=== PATIENT | female | born 1935 | race Caucasian/White ===

== ENCOUNTER → 2021-06-14 | Outpatient (CLI) | payer MEDICARE, BC | END | disposition home or self-care (01) | LOC: LAB SHORT 14:54 | DX: C44.612 Basal cell carcinoma of skin of right upper limb, including shoulder (principal); D03.39 Melanoma in situ of other parts of face; C44.41 Basal cell carcinoma of skin of scalp and neck; D04.71 Carcinoma in situ of skin of right lower limb, including hip | CPT/HCPCS: 88305 ==

== ENCOUNTER → 2021-08-11 | Outpatient (CLI) | payer MEDICARE, BC | END | disposition home or self-care (01) | LOC: LAB SHORT 12:43 | DX: N39.0 Urinary tract infection, site not specified (principal) | CPT/HCPCS: 87086 ==

== ENCOUNTER → 2021-09-09 | Outpatient (CLI) | payer MEDICARE, BC | END | disposition home or self-care (01) | LOC: LAB SHORT 12:05 | DX: N39.0 Urinary tract infection, site not specified (principal) | CPT/HCPCS: 87086 ==

== ENCOUNTER 2021-12-10 04:22 | Emergency (ER) | payer MEDICARE, BC ==
[~2021-12-10] VITALS: Ht 160 cm; Wt 49.9 kg
[2021-12-10] MEDS ORDERED: FLUO10 PO (04:43)
[2021-12-10] MEDS ORDERED: DONEPEZIL HCL10 M1 PO (04:44)
[2021-12-10 04:57] LABS: BASOPHILS ABSOLUTE AUTO 0.03 K/mm3 (0.00-0.23); BASOPHILS PERCENT AUTO 0 % (0-2); EOSINOPHILS ABSOLUTE AUTO 0.07 K/mm3 (0.00-0.68); EOSINOPHILS PERCENT AUTO 1 % (0-6); Hematocrit 40.2 % (33.0-51.0); Hemoglobin 13.8 g/dL (11.5-16.0); IMMATURE GRAN ABSOLUTE AUTO 0.03 K/mm3 (0.00-0.10); IMMATURE GRAN PERCENT AUTO 0 % (0-1); LYMPHOCYTES PERCENT AUTO 24 % (21-46); MONOCYTES ABSOLUTE AUTO 0.61 K/mm3 (0.16-1.47); MONOCYTES PERCENT AUTO 8 % (4-13); Mean Corpuscular HGB 30.4 pg (26.0-34.0); Mean Corpuscular HGB Conc 34.3 g/dL (31.5-36.5); Mean Corpuscular Volume 89 fL (80-100); Mean Platelet Volume 8.7 fL (9.1-12.4); NEUTROPHILS ABSOLUTE AUTO 5.39 K/mm3 (1.96-9.15); NEUTROPHILS PERCENT AUTO 67 % (41-73); Platelet Count 209 K/mm3 (150-400); RDW Coefficient Variation 12.6 % (11.7-14.2); RDW Standard Deviation 41.1 fL (35.1-46.3); Red Blood Cell Count 4.54 M/mm3 (3.80-5.20); White Blood Cell Count 8.03 K/mm3 (4.00-11.30)
[2021-12-10 05:10] LABS: Alanine Aminotransfer (ALT/SGP 47 U/L (12-78); Albumin, Blood 3.7 g/dL (3.4-5.0); Albumin/Globulin Ratio 0.9 (0.8-1.8); Alk Phos 89 U/L (50-136); Anion Gap 9 mmol/L (6-16); Aspartate Aminotrans (AST/SGOT 32 U/L (12-37); Bilirubin, Total 0.5 mg/dL (0.1-1.0); Blood Urea Nitrogen 20 mg/dL (8-24); Bun/Creatinine Ratio 31.2 (12.0-20.0); CO2, Blood 27 mmol/L (21-32); Calcium, Blood 9.4 mg/dL (8.5-10.1); Chloride, Blood 99 mmol/L (98-108); Creatinine, Blood 0.64 mg/dL (0.40-1.00); Glomerular Filtration Rate 87 (60-); Glucose, Blood 137 mg/dL (70-99); Potassium, Blood 3.4 mmol/L (3.5-5.5); Sodium, Blood 135 mmol/L (136-145); Total Protein, Blood 7.7 g/dL (6.4-8.2)
== END 2021-12-10 07:31 | disposition home or self-care (01) ==
LOC: ER 04:22
PROVIDERS: Emergency Medicine
DX: R51.9 Headache, unspecified (principal); I10 Essential (primary) hypertension; Z79.82 Long term (current) use of aspirin; Z79.899 Other long term (current) drug therapy
CPT/HCPCS: 36415; 70450; 70496; 70498; 80053; 84484; 85025; 93005; 93010; A9270; Q9967

== ENCOUNTER 2022-07-11 13:51 | Emergency (ER) | payer MEDICARE, BC ==
[~2022-07-11] VITALS: Ht 160 cm; Wt 52.2 kg
[~2022-07-11 13:51] MED LIST: DONEPEZIL HCL10 M1 PO; FLUO10 PO
== END 2022-07-11 19:04 | disposition home or self-care (01) ==
LOC: ER 13:51
DX: S09.90XA Unspecified injury of head, initial encounter (principal); W19.XXXA Unspecified fall, initial encounter; Z79.899 Other long term (current) drug therapy
CPT/HCPCS: 70450

== ENCOUNTER → 2023-08-21 | Outpatient (CLI) | payer MEDICARE, BC | LOC: LAB SHORT 14:34 → LAB 14:34 | DX: R30.0 Dysuria (principal); R11.0 Nausea | CPT/HCPCS: 87086 ==

== ENCOUNTER → 2024-05-06 | Outpatient (CLI) | payer MEDICARE, BC ==
[~2024-05-06] MED LIST changes: +CARV6.25 PO; +LOSARTAN POTASS50 M1 PO; +POTA10T PO; +SPIR25 PO; +TORS10 PO
[2024-05-06 18:37] LABS: BASOPHILS ABSOLUTE AUTO 0.02 K/mm3 (0.00-0.23); BASOPHILS PERCENT AUTO 0 % (0-2); EOSINOPHILS ABSOLUTE AUTO 0.14 K/mm3 (0.00-0.68); EOSINOPHILS PERCENT AUTO 2 % (0-6); Hematocrit 32.9 % (33.0-51.0); Hemoglobin 11.2 g/dL (11.5-16.0); IMMATURE GRAN ABSOLUTE AUTO 0.02 K/mm3 (0.00-0.10); IMMATURE GRAN PERCENT AUTO 0 % (0-1); LYMPHOCYTES ABSOLUTE AUTO 1.79 K/mm3 (0.84-5.20); LYMPHOCYTES PERCENT AUTO 29 % (21-46); MONOCYTES ABSOLUTE AUTO 0.41 K/mm3 (0.16-1.47); MONOCYTES PERCENT AUTO 7 % (4-13); Mean Corpuscular Volume 91 fL (80-100); Mean Platelet Volume 9.1 fL (9.1-12.4); NEUTROPHILS ABSOLUTE AUTO 3.81 K/mm3 (1.96-9.15); NEUTROPHILS PERCENT AUTO 62 % (41-73); Platelet Count 232 K/mm3 (150-400); RDW Coefficient Variation 14.5 % (11.7-14.2); RDW Standard Deviation 47.3 fL (35.1-46.3); Red Blood Cell Count 3.61 M/mm3 (3.80-5.20); White Blood Cell Count 6.19 K/mm3 (4.00-11.30)
[2024-05-06 18:57] LABS: Albumin, Blood 3.3 g/dL (3.4-5.0); Albumin/Globulin Ratio 0.9 (0.8-1.8); Bilirubin, Total 0.6 mg/dL (0.1-1.0); Bun/Creatinine Ratio 28.2 (12.0-20.0); Calcium, Blood 9.1 mg/dL (8.5-10.1); Creatinine, Blood 1.1 mg/dL (0.40-1.00); Globulin, Blood 3.6 g/dL (2.2-4.0); Potassium, Blood 3.8 mmol/L (3.5-5.5); Thyroid Stimulating Hormone 2.32 uIU/mL (0.360-4.800); Total Protein, Blood 6.9 g/dL (6.4-8.2)
== END | disposition home or self-care (01) ==
LOC: LAB 18:34 → LAB SHORT 18:34
PROVIDERS: Physician Assistant
DX: R53.83 Other fatigue (principal); R60.0 Localized edema
CPT/HCPCS: 80053; 83880; 84443; 85025

== ENCOUNTER 2024-05-07 10:56 | Inpatient (IN) | payer MEDICARE, BC ==
[~2024-05-07] VITALS: Ht 160 cm; Wt 52.7 kg
[~2024-05-07 10:56] MED LIST changes: -CARV6.25 PO; -LOSARTAN POTASS50 M1 PO; -POTA10T PO; -SPIR25 PO; -TORS10 PO
[2024-05-07 12:25] LABS: BASOPHILS ABSOLUTE AUTO 0.03 K/mm3 (0.00-0.23); BASOPHILS PERCENT AUTO 1 % (0-2); EOSINOPHILS ABSOLUTE AUTO 0.07 K/mm3 (0.00-0.68); EOSINOPHILS PERCENT AUTO 1 % (0-6); Hematocrit 32.2 % (33.0-51.0); Hemoglobin 10.6 g/dL (11.5-16.0); IMMATURE GRAN ABSOLUTE AUTO 0.01 K/mm3 (0.00-0.10); IMMATURE GRAN PERCENT AUTO 0 % (0-1); LYMPHOCYTES ABSOLUTE AUTO 1.27 K/mm3 (0.84-5.20); LYMPHOCYTES PERCENT AUTO 25 % (21-46); MONOCYTES ABSOLUTE AUTO 0.41 K/mm3 (0.16-1.47); MONOCYTES PERCENT AUTO 8 % (4-13); Mean Corpuscular HGB Conc 32.9 g/dL (31.5-36.5); Mean Corpuscular Volume 91 fL (80-100); Mean Platelet Volume 9.3 fL (9.1-12.4); NEUTROPHILS ABSOLUTE AUTO 3.39 K/mm3 (1.96-9.15); NEUTROPHILS PERCENT AUTO 65 % (41-73); Platelet Count 219 K/mm3 (150-400); RDW Coefficient Variation 14.3 % (11.7-14.2); RDW Standard Deviation 47.2 fL (35.1-46.3); Red Blood Cell Count 3.53 M/mm3 (3.80-5.20); White Blood Cell Count 5.18 K/mm3 (4.00-11.30)
[2024-05-07 12:48] LABS: Albumin, Blood 3.2 g/dL (3.4-5.0); Albumin/Globulin Ratio 0.9 (0.8-1.8); Bilirubin, Total 0.7 mg/dL (0.1-1.0); Calcium, Blood 8.8 mg/dL (8.5-10.1); Creatinine, Blood 1.15 mg/dL (0.40-1.00); Globulin, Blood 3.5 g/dL (2.2-4.0); Potassium, Blood 3.4 mmol/L (3.5-5.5); Total Protein, Blood 6.7 g/dL (6.4-8.2)
[2024-05-07] MEDS ORDERED: Furosemide 10 MG/ML 4ML Vial IV ONE (15:00)
[2024-05-07 16:50] LABS: Source, Urine Clean Catch
[2024-05-07] MEDS ORDERED: FLU VACC TS2024-25(6MOS UP)/PF 45 MCG/0.5 ML SYRINGE IM ONE (17:05)
[2024-05-07 17:06] LABS: Appearance, Urine Clear (Clear); Bilirubin, Urine Neg (Neg); Blood, Urine 2+ (Neg); Glucose Qualitative, Urine Neg (Neg); Ketones, Urine Neg (Neg); Leukocyte Esterase, Urine Neg (Neg); Nitrite, Urine Neg (Neg); Protein, Urine Neg (Neg); Specific Gravity, Urine 1.005 (1.003-1.022); Urobilinogen, Urine NORM (Normal)
[2024-05-07 17:27] LABS: Color, Urine Pale Yellow (P-Yellow)
[2024-05-07 17:28] LABS: Bacteria Rare /hpf; Squamous Epithelial Cells Not Seen /hpf (Few); White Blood Cells, Urine 0-2 /hpf (0-5)
[2024-05-07] MEDS ORDERED: Losartan Potassium 25 MG Tab PO SCH (18:00)
--- NOTE | 2024-05-07 18:27 | NUR ---
PATIENT ASSIGNED TO THIS RN'S ASSIGNED ROOM 348. CHART REVIEW FOR ONCOMING SHIFT TO ADMIT PATIENT.
[2024-05-07 20:54] VITALS: BP 156/89
--- NOTE | 2024-05-07 23:09 | NUR ---
ADMIT NOTE PT ADMITTED FOR CHF. SHE HAS HAD LEG SWELLING AND INCREASED WEAKNESS AT HER ASSISTED LIVING FACILITY. SHE MAINTAINS HER SATS ON RA. 2 ASSIST FROM STRETCHER TO BED. PT IS 0X2, FORGETFUL. DAUGHTER, RAYMON, PRESENT DURING ADMISSION ASSESSMENT, ASSISTING WITH QUESTIONS. BED ALARM ON, CALL LIGHT WITHIN REACH, SIDE RAILS UP X2.
[2024-05-08 03:53] VITALS: BP 176/105
[2024-05-08 06:01] LABS: BASOPHILS ABSOLUTE AUTO 0.02 K/mm3 (0.00-0.23); BASOPHILS PERCENT AUTO 0 % (0-2); EOSINOPHILS ABSOLUTE AUTO 0.13 K/mm3 (0.00-0.68); EOSINOPHILS PERCENT AUTO 2 % (0-6); Hematocrit 34.3 % (33.0-51.0); Hemoglobin 11.3 g/dL (11.5-16.0); IMMATURE GRAN ABSOLUTE AUTO 0.05 K/mm3 (0.00-0.10); IMMATURE GRAN PERCENT AUTO 1 % (0-1); LYMPHOCYTES ABSOLUTE AUTO 1.68 K/mm3 (0.84-5.20); LYMPHOCYTES PERCENT AUTO 26 % (21-46); MONOCYTES ABSOLUTE AUTO 0.48 K/mm3 (0.16-1.47); MONOCYTES PERCENT AUTO 8 % (4-13); Mean Corpuscular HGB 30.2 pg (26.0-34.0); Mean Corpuscular HGB Conc 32.9 g/dL (31.5-36.5); Mean Corpuscular Volume 92 fL (80-100); Mean Platelet Volume 9.3 fL (9.1-12.4); NEUTROPHILS ABSOLUTE AUTO 4.07 K/mm3 (1.96-9.15); NEUTROPHILS PERCENT AUTO 63 % (41-73); Platelet Count 238 K/mm3 (150-400); RDW Coefficient Variation 14.5 % (11.7-14.2); RDW Standard Deviation 47.7 fL (35.1-46.3); Red Blood Cell Count 3.74 M/mm3 (3.80-5.20); White Blood Cell Count 6.43 K/mm3 (4.00-11.30)
--- NOTE | 2024-05-08 06:14 | NUR ---
SHIFT SUMMARY PT ADMITTED THIS SHIFT FOR CHF. LOSARTAN STARTED FOR HTN, BUT BP REMAINS ELEVATED THIS AM. EDEMA TO BLE'S RIGHT MORE EDEMATOUS THAN LEFT. PT OOB TO BSC WITH MAX ASSIST. PT IS VERY WEAK. PT WITH CONFUSION AND FORGETFULNESS. BED ALARM ON, SIDERAILS UP X2, CALL LIGHT WITHIN REACH.
[2024-05-08 06:31] LABS: Albumin, Blood 3.4 g/dL (3.4-5.0); Bun/Creatinine Ratio 27.9 (12.0-20.0); Calcium, Blood 8.9 mg/dL (8.5-10.1); Creatinine, Blood 0.97 mg/dL (0.40-1.00); Globulin, Blood 3.5 g/dL (2.2-4.0); Potassium, Blood 3.3 mmol/L (3.5-5.5); Total Protein, Blood 6.9 g/dL (6.4-8.2)
[2024-05-08 07:29] VITALS: BP 168/108
[2024-05-08] MEDS ORDERED: Ondansetron HCl 2 MG / ML 2ML Vial IV PRN (08:40)
[2024-05-08] MEDS ORDERED: Donepezil HCl 5 MG Tab PO SCH (09:00)
[2024-05-08] MEDS ORDERED: Furosemide 10 MG / ML 2ML Vial IV SCH (09:00)
[2024-05-08] MEDS ORDERED: Enoxaparin 30 MG/0.3 ML SYR SC SCH (09:00)
[2024-05-08] MEDS ORDERED: FLUoxetine HCl 10 MG Cap PO SCH (09:00)
[2024-05-08] MEDS ORDERED: Losartan Potassium 25 MG Tab PO ONE (11:00)
--- NOTE | 2024-05-08 16:45 | NUR ---
ATTEMPTED TO CALL PHYSICIAN FOR POTASSIUM OF 3.3 THIS AM AND WAS UNABLE TO REACH. MESSAGE LEFT, NO ORDERS RECEIVED.
--- NOTE | 2024-05-08 17:17 | NUR ---
SHIFT SUMMARY PT IS A/OX2, CONFUSION AT TIMES. PT SLEPT THROUGHOUT MUCH OF THE SHIFT. PT REMAINS ON RA SATS >92%. ON TELE RUNNING SINUS RHYTHM IN THE 90'S. PT ABLE TO TRANSFER TO BSC WITH A 2 PERSON ASSIST. TAKES PILLS WHOLE WITH WATER. NO ACUTE EVENTS THROUGHOUT THE SHIFT. BED ALARM IS ON WITH THE CALL LIGHT IN REACH. DAUGHTER AT BEDSIDE.
--- NOTE | 2024-05-08 19:00 | NUR ---
ATTEMPTED TO CONTACT AUDIT ANALYST DOCTORS FOR A POTASSIUM OF 3.3 THIS AM AND WAS UNABLE TO REACH.
[2024-05-08 19:20] VITALS: BP 135/83
[2024-05-08] MEDS ORDERED: Potassium Chloride 20 MEQ TabCR PO ONE (22:40)
[2024-05-09 02:26] VITALS: BP 140/83
--- NOTE | 2024-05-09 04:10 | NUR ---
PT RESTED IN BED QUIETLY THROUGH THE NIGHT. NO DISTRESS NOTED. EASILY AWAKENED. NO C/O VOICED.
[2024-05-09 06:15] LABS: BASOPHILS ABSOLUTE AUTO 0.02 K/mm3 (0.00-0.23); BASOPHILS PERCENT AUTO 0 % (0-2); EOSINOPHILS ABSOLUTE AUTO 0.18 K/mm3 (0.00-0.68); EOSINOPHILS PERCENT AUTO 3 % (0-6); Hematocrit 32.1 % (33.0-51.0); Hemoglobin 10.6 g/dL (11.5-16.0); IMMATURE GRAN ABSOLUTE AUTO 0.03 K/mm3 (0.00-0.10); IMMATURE GRAN PERCENT AUTO 1 % (0-1); LYMPHOCYTES ABSOLUTE AUTO 1.45 K/mm3 (0.84-5.20); LYMPHOCYTES PERCENT AUTO 24 % (21-46); MONOCYTES ABSOLUTE AUTO 0.48 K/mm3 (0.16-1.47); MONOCYTES PERCENT AUTO 8 % (4-13); Mean Corpuscular HGB 30.5 pg (26.0-34.0); Mean Corpuscular Volume 92 fL (80-100); Mean Platelet Volume 9.1 fL (9.1-12.4); NEUTROPHILS ABSOLUTE AUTO 3.87 K/mm3 (1.96-9.15); NEUTROPHILS PERCENT AUTO 64 % (41-73); Platelet Count 189 K/mm3 (150-400); RDW Coefficient Variation 14.4 % (11.7-14.2); RDW Standard Deviation 47.8 fL (35.1-46.3); Red Blood Cell Count 3.48 M/mm3 (3.80-5.20); White Blood Cell Count 6.03 K/mm3 (4.00-11.30)
[2024-05-09 06:41] LABS: Bun/Creatinine Ratio 25.9 (12.0-20.0); Calcium, Blood 8.6 mg/dL (8.5-10.1); Creatinine, Blood 1.12 mg/dL (0.40-1.00); Potassium, Blood 3.6 mmol/L (3.5-5.5)
[2024-05-09] MEDS ORDERED: Losartan Potassium 25 MG Tab PO SCH (09:00)
[2024-05-09] MEDS ORDERED: Enoxaparin 40 MG/0.4 ML SYR SC SCH (09:00)
[2024-05-09] MEDS ORDERED: Spironolactone 12.5 MG TAB PO SCH (11:00)
[2024-05-09] MEDS ORDERED: Empagliflozin 10 MG TAB PO SCH (11:00)
[2024-05-09] MEDS ORDERED: Carvedilol 3.125 MG Tab PO SCH (11:00)
[2024-05-09 12:06] VITALS: BP 106/80
[2024-05-09 15:04] VITALS: BP 113/75
--- NOTE | 2024-05-09 16:46 | NUR ---
SHIFT SUMMARY PT IS A/OX2-3, CONFUSED AND FORGETFUL AT TIMES. PT REMAINS ON RA, TELE RUNNING NORMAL SINUS RHYTHM. PT VISITED BY PT/OT TODAY, UP TO THE BSC WITH 1 PERSON ASSIST. PT EXPEREINCED ONE EPISODE OF NAUSEA AROUND LUNCHTIME, MEDICATED WITH PRN ZOFRAN AND THE NAUSEA RESOLVED. FIRST PART OF THE STRESS TEST COMPLETED THIS AFTERNOON. SECOND PART TO BE DONE TOMORROW AFTERNOON, PT TO BE NPO AFTER BREAKFAST TOMORROW, NO CAFFIENE/DECAF OR CHOCOLATE AFTER MIDNIGHT TONIGHT. DAUGHTER AT BEDSIDE THIS AM. PT UP TO THE CHAIR THIS AFTERNOON. PT IS CURRENTLY RESTING IN BED.
[2024-05-09 17:17] VITALS: BP 134/95
[2024-05-09 19:28] VITALS: BP 103/63
--- NOTE | 2024-05-10 03:48 | NUR ---
PT RESTING QUIETLY THROUGH THE NIGHT. RESP EVEN AND UNLABORED. NO DISTRESS NOTED.
[2024-05-10 06:21] LABS: BASOPHILS ABSOLUTE AUTO 0.03 K/mm3 (0.00-0.23); BASOPHILS PERCENT AUTO 1 % (0-2); EOSINOPHILS ABSOLUTE AUTO 0.25 K/mm3 (0.00-0.68); EOSINOPHILS PERCENT AUTO 5 % (0-6); Hematocrit 33.8 % (33.0-51.0); IMMATURE GRAN ABSOLUTE AUTO 0.02 K/mm3 (0.00-0.10); IMMATURE GRAN PERCENT AUTO 0 % (0-1); LYMPHOCYTES ABSOLUTE AUTO 1.62 K/mm3 (0.84-5.20); LYMPHOCYTES PERCENT AUTO 33 % (21-46); MONOCYTES ABSOLUTE AUTO 0.41 K/mm3 (0.16-1.47); MONOCYTES PERCENT AUTO 8 % (4-13); Mean Corpuscular HGB 30.6 pg (26.0-34.0); Mean Corpuscular HGB Conc 32.5 g/dL (31.5-36.5); Mean Corpuscular Volume 94 fL (80-100); Mean Platelet Volume 9.4 fL (9.1-12.4); NEUTROPHILS ABSOLUTE AUTO 2.57 K/mm3 (1.96-9.15); NEUTROPHILS PERCENT AUTO 52 % (41-73); Platelet Count 199 K/mm3 (150-400); RDW Coefficient Variation 14.4 % (11.7-14.2); RDW Standard Deviation 49.1 fL (35.1-46.3)
[2024-05-10 07:00] LABS: Magnesium, Blood 1.8 mg/dL (1.6-2.4)
[2024-05-10 07:01] LABS: Albumin, Blood 2.9 g/dL (3.4-5.0); Albumin/Globulin Ratio 0.9 (0.8-1.8); Bilirubin, Total 0.4 mg/dL (0.1-1.0); Bun/Creatinine Ratio 26.5 (12.0-20.0); Calcium, Blood 8.5 mg/dL (8.5-10.1); Creatinine, Blood 1.13 mg/dL (0.40-1.00); Globulin, Blood 3.2 g/dL (2.2-4.0); Phosphorus, Blood 3.4 mg/dL (2.5-4.9); Potassium, Blood 3.5 mmol/L (3.5-5.5); Total Protein, Blood 6.1 g/dL (6.4-8.2)
[2024-05-10 07:16] VITALS: BP 119/81
[2024-05-10] MEDS ORDERED: Regadenoson 0.4 MG/5 ML SYRINGE ONE (13:34)
[2024-05-10] MEDS ORDERED: Aminophylline 250MG / 10ML 10 ML Vial ONE (13:34)
--- NOTE | 2024-05-10 14:13 | NUR ---
report received verified, a/o x2 pleasent and cooperative npo after breakfest for jun. daughter at bedside concerned with pt condition and discharge plan. 1400 nuc med tech into perform procedure.
[2024-05-10 16:28] VITALS: BP 135/88
--- NOTE | 2024-05-10 18:16 | NUR ---
STRESS TEST AT BEDSIDE DONE AND PT BARRY WELL. 1400 PT TAKE FOR FINAL IMAGING. PT REQUESTED TO BED IN CHAIR. SNACKS GIVEN. DAUGHTER AT BEDSIDE AND PT BACK IN BED.
[2024-05-10 19:54] VITALS: BP 113/71
[2024-05-11 02:28] VITALS: BP 148/84
[2024-05-11 07:15] VITALS: BP 144/79
[2024-05-11 07:53] LABS: Bun/Creatinine Ratio 31.7 (12.0-20.0); Calcium, Blood 8.8 mg/dL (8.5-10.1); Creatinine, Blood 1.04 mg/dL (0.40-1.00); Potassium, Blood 3.6 mmol/L (3.5-5.5)
[2024-05-11] MEDS ORDERED: Furosemide 10 MG/ML 4ML Vial IV ONE (10:35)
[2024-05-11 15:17] VITALS: BP 128/82
[2024-05-11] MEDS ORDERED: Carvedilol 6.25 MG Tab PO SCH (17:00)
--- NOTE | 2024-05-11 18:38 | NUR ---
REPORT RECEIVED VERIFIED A/O WITH COME CONFUSION PT CALM AND COOPERATIVE. PT HOPING TO GO HOME TODAY DAUGHTER AT BEDSIDE WAITING TO SPEAK WITH MD. NO CHANGE PT UP IN CHAIR
--- NOTE | 2024-05-11 18:40 | NUR ---
NO CHANGE BED ALARM IN PLACE CALL LIGHT WITHIN REACH.
--- NOTE | 2024-05-11 18:40 | NUR ---
CLIENT SERVER PROGRAMMER SPOKE WITH MD AND WILL REASSESS TOMORROW, FAMILY FEELS THEY ARE MORE AWARE NOW OF PT CONDITION.
[2024-05-11 19:28] VITALS: BP 104/72
[2024-05-12 03:01] VITALS: BP 141/85
[2024-05-12] MEDS ORDERED: Furosemide 10 MG/ML 4ML Vial IV SCH ×3 (07:00→09:00)
[2024-05-12 07:29] VITALS: BP 134/80
[2024-05-12 08:30] LABS: BASOPHILS ABSOLUTE AUTO 0.04 K/mm3 (0.00-0.23); BASOPHILS PERCENT AUTO 1 % (0-2); EOSINOPHILS ABSOLUTE AUTO 0.18 K/mm3 (0.00-0.68); EOSINOPHILS PERCENT AUTO 4 % (0-6); Hematocrit 33.9 % (33.0-51.0); IMMATURE GRAN ABSOLUTE AUTO 0.02 K/mm3 (0.00-0.10); IMMATURE GRAN PERCENT AUTO 0 % (0-1); LYMPHOCYTES ABSOLUTE AUTO 1.44 K/mm3 (0.84-5.20); LYMPHOCYTES PERCENT AUTO 28 % (21-46); MONOCYTES ABSOLUTE AUTO 0.41 K/mm3 (0.16-1.47); MONOCYTES PERCENT AUTO 8 % (4-13); Mean Corpuscular HGB 30.5 pg (26.0-34.0); Mean Corpuscular HGB Conc 32.4 g/dL (31.5-36.5); Mean Corpuscular Volume 94 fL (80-100); Mean Platelet Volume 9.4 fL (9.1-12.4); NEUTROPHILS ABSOLUTE AUTO 3.06 K/mm3 (1.96-9.15); NEUTROPHILS PERCENT AUTO 59 % (41-73); Platelet Count 214 K/mm3 (150-400); RDW Coefficient Variation 14.5 % (11.7-14.2); RDW Standard Deviation 49.5 fL (35.1-46.3); Red Blood Cell Count 3.61 M/mm3 (3.80-5.20); White Blood Cell Count 5.15 K/mm3 (4.00-11.30)
[2024-05-12 08:53] LABS: Calcium, Blood 9.1 mg/dL (8.5-10.1); Creatinine, Blood 1.11 mg/dL (0.40-1.00); Potassium, Blood 3.6 mmol/L (3.5-5.5)
[2024-05-12] MEDS ORDERED: Losartan Potassium 25 MG Tab PO ONE (12:07)
[2024-05-12 15:32] VITALS: BP 126/84
--- NOTE | 2024-05-12 18:09 | NUR ---
REPORT RECEIVED AND VERIFIED. PT MORE CONFUSED TODAY BUT COOPERATIVE, DOES NOT UNDERSTAND WHY WHERE . DAUGHTER IS AWARE AND I EXPLAINED RUSTIC TERRAZZO SETTER VISIT TO DAUGHTER. PT UPSET BOWEL MOVEMENTS TODAY AND HAS BEEN INC OF URINE AND STOOL. DAUGHTER AT BEDSIDE ASSISTING WITH CARE
[2024-05-12 19:14] VITALS: BP 123/73
[2024-05-13 03:52] VITALS: BP 126/78
--- NOTE | 2024-05-13 05:18 | NUR ---
JEWEL SUPERVISOR PATIENT IS A&OX 2 CONFUSE, VITALS ARE STABLE, ON ROOM AIR, AND IS ON TELE RUNNING SINUS RHYTHM AT 60. PLAN IS POSSIBLE D/C TODAY TO [facility].
[2024-05-13] MEDS ORDERED: Losartan Potassium 50 MG Tab PO SCH (07:00)
[2024-05-13 07:27] LABS: BASOPHILS ABSOLUTE AUTO 0.02 K/mm3 (0.00-0.23); BASOPHILS PERCENT AUTO 0 % (0-2); EOSINOPHILS ABSOLUTE AUTO 0.21 K/mm3 (0.00-0.68); EOSINOPHILS PERCENT AUTO 4 % (0-6); Hematocrit 31.9 % (33.0-51.0); Hemoglobin 10.7 g/dL (11.5-16.0); IMMATURE GRAN ABSOLUTE AUTO 0.01 K/mm3 (0.00-0.10); IMMATURE GRAN PERCENT AUTO 0 % (0-1); LYMPHOCYTES ABSOLUTE AUTO 1.41 K/mm3 (0.84-5.20); LYMPHOCYTES PERCENT AUTO 26 % (21-46); MONOCYTES ABSOLUTE AUTO 0.54 K/mm3 (0.16-1.47); MONOCYTES PERCENT AUTO 10 % (4-13); Mean Corpuscular HGB 31.1 pg (26.0-34.0); Mean Corpuscular HGB Conc 33.5 g/dL (31.5-36.5); Mean Corpuscular Volume 93 fL (80-100); Mean Platelet Volume 9.4 fL (9.1-12.4); NEUTROPHILS ABSOLUTE AUTO 3.22 K/mm3 (1.96-9.15); NEUTROPHILS PERCENT AUTO 59 % (41-73); Platelet Count 199 K/mm3 (150-400); RDW Coefficient Variation 14.3 % (11.7-14.2); RDW Standard Deviation 47.7 fL (35.1-46.3); Red Blood Cell Count 3.44 M/mm3 (3.80-5.20); White Blood Cell Count 5.41 K/mm3 (4.00-11.30)
[2024-05-13 07:32] VITALS: BP 128/84
[2024-05-13 07:57] LABS: Bun/Creatinine Ratio 29.9 (12.0-20.0); Calcium, Blood 8.5 mg/dL (8.5-10.1); Creatinine, Blood 1.17 mg/dL (0.40-1.00); Potassium, Blood 3.3 mmol/L (3.5-5.5)
[2024-05-13] MEDS ORDERED: CARV6.25 PO ×2 (13:11)
[2024-05-13] MEDS ORDERED: LOSARTAN POTASS50 M1 PO ×2 (13:12)
[2024-05-13] MEDS ORDERED: SPIR25 PO ×2 (13:13)
[2024-05-13] MEDS ORDERED: POTA10T PO ×2 (13:13)
[2024-05-13] MEDS ORDERED: TORS10 PO ×2 (13:14)
--- NOTE | 2024-05-13 15:16 | NUR ---
DISCHARGE NOTE PT DISCHARGED TO HOME WITH HOME-HEALTH. PICKED UP BY HER DAUGHTER. IV REMOVED. TELE RETURNED. MEDICATIONS FAXED TO THE PHARMACY OF HER CHOICE. DAUGHTER PROVIDED EDUCATION. PERSONAL BELONGINGS RETURNED.
[2024-05-14] MEDS ORDERED: Enoxaparin 30 MG/0.3 ML SYR SC SCH (09:00)
== END 2024-05-13 15:18 | disposition home health service (06) | DRG 291 ==
LOC: ER 10:56 → MEDS 10:57 → ERHOLD 10:57 → MEDS 20:35
PROVIDERS: Emergency Medicine; Hospitalist; Student in an Organized Health Care Education/Training Program; ADMIT Internal Medicine
DX: I13.0 Hypertensive heart and chronic kidney disease with heart failure and stage 1 through stage 4 chronic kidney disease, or unspecified chronic kidney disease (principal); G93.41 Metabolic encephalopathy; I50.23 Acute on chronic systolic (congestive) heart failure; F02.A3 Dementia in other diseases classified elsewhere, mild, with mood disturbance; F03.A4 Unspecified dementia, mild, with anxiety; G30.9 Alzheimer's disease, unspecified; I25.5 Ischemic cardiomyopathy; I25.10 Atherosclerotic heart disease of native coronary artery without angina pectoris; N18.31 Chronic kidney disease, stage 3a; I08.2 Rheumatic disorders of both aortic and tricuspid valves; E78.5 Hyperlipidemia, unspecified; K21.9 Gastro-esophageal reflux disease without esophagitis; Z66 Do not resuscitate; R41.3 Other amnesia; K58.9 Irritable bowel syndrome, unspecified; I25.2 Old myocardial infarction; Z95.5 Presence of coronary angioplasty implant and graft; Z95.1 Presence of aortocoronary bypass graft; Z79.899 Other long term (current) drug therapy
CPT/HCPCS: 36415; 70450; 71046; 78452; 80048; 80053; 81001; 83735; 83880; 84100; 84443; 84484; 85025; 93005; 93010; 93017; 96372; 96374; 96376; 97110; 97116; 97162; 97165; 97530; 97530-CQ; 97535; 99285-25; A9270; A9500; C8929; G0378; J0280; J1650; J1940; J2405; J2785; Q9957

== ENCOUNTER 2024-05-24 11:07 | Inpatient (IN) | payer MEDICARE, BC ==
[~2024-05-24] VITALS: Ht 160 cm; Wt 48.0 kg
[~2024-05-24 11:07] MED LIST changes: +CARV6.25 PO; +LOSARTAN POTASS50 M1 PO; +POTA10T PO; +SPIR25 PO; +TORS10 PO
[2024-05-24] MEDS ORDERED: Aspir 8181 MG PO (11:43)
[2024-05-24 12:00] LABS: BASOPHILS ABSOLUTE AUTO 0.03 K/mm3 (0.00-0.23); BASOPHILS PERCENT AUTO 0 % (0-2); EOSINOPHILS PERCENT AUTO 1 % (0-6); Hematocrit 40.5 % (33.0-51.0); Hemoglobin 13.3 g/dL (11.5-16.0); IMMATURE GRAN ABSOLUTE AUTO 0.01 K/mm3 (0.00-0.10); IMMATURE GRAN PERCENT AUTO 0 % (0-1); LYMPHOCYTES ABSOLUTE AUTO 2.02 K/mm3 (0.84-5.20); LYMPHOCYTES PERCENT AUTO 29 % (21-46); MONOCYTES ABSOLUTE AUTO 0.72 K/mm3 (0.16-1.47); MONOCYTES PERCENT AUTO 10 % (4-13); Mean Corpuscular HGB 30.6 pg (26.0-34.0); Mean Corpuscular HGB Conc 32.8 g/dL (31.5-36.5); Mean Corpuscular Volume 93 fL (80-100); Mean Platelet Volume 9.1 fL (9.1-12.4); NEUTROPHILS ABSOLUTE AUTO 4.05 K/mm3 (1.96-9.15); NEUTROPHILS PERCENT AUTO 59 % (41-73); Platelet Count 193 K/mm3 (150-400); RDW Coefficient Variation 14.1 % (11.7-14.2); RDW Standard Deviation 49.1 fL (35.1-46.3); Red Blood Cell Count 4.34 M/mm3 (3.80-5.20); White Blood Cell Count 6.93 K/mm3 (4.00-11.30)
[2024-05-24 12:18] LABS: International Normalized Ratio 1.02; Prothrombin Time Results 10.9 Sec (9.7-11.5)
[2024-05-24 12:24] LABS: Albumin, Blood 3.6 g/dL (3.4-5.0); Albumin/Globulin Ratio 0.9 (0.8-1.8); Bilirubin, Total 0.7 mg/dL (0.1-1.0); Bun/Creatinine Ratio 31.7 (12.0-20.0); Calcium, Blood 9.7 mg/dL (8.5-10.1); Creatinine, Blood 1.04 mg/dL (0.40-1.00); Globulin, Blood 4.1 g/dL (2.2-4.0); Magnesium, Blood 2.2 mg/dL (1.6-2.4); Phosphorus, Blood 3.4 mg/dL (2.5-4.9); Potassium, Blood 4.4 mmol/L (3.5-5.5); Total Protein, Blood 7.7 g/dL (6.4-8.2)
[2024-05-24] MEDS ORDERED: Clopidogrel Bisulfate 75 MG Tab PO ONE (13:50)
[2024-05-24] MEDS ORDERED: Aspirin 81 MG Chew PO ONE (13:50)
[2024-05-24] MEDS ORDERED: FLU VACC TS2024-25(6MOS UP)/PF 45 MCG/0.5 ML SYRINGE IM SCH (15:55)
[2024-05-24 18:24] VITALS: BP 178/95
--- NOTE | 2024-05-24 18:29 | NUR ---
BEDSIDE SWALLOW EVALUATION PERFORMED BY RN. PATIENT IS ABLE TO DRINK WATER, SWALLOW APPLESAUCE AND CHEW A SALTINE CRACKER WITHOUT ANY PROBLEM. DIET ORDERED. PATIENT TRANSFERRED [facility] BED [facility] WITH 2PA AND [place]. SHE FED HERSELF A CRACKER AND APPLESAUCE WITH HER LEFT HAND BECAUSE SHE IS LEFT HANDED. WILL CONTINUE TO MONITOR
[2024-05-24 19:17] VITALS: BP 164/103
[2024-05-25 03:43] VITALS: BP 156/82
--- NOTE | 2024-05-25 04:00 | NUR ---
SHIFT SUMMARY ADMITTED FOR CVA. DNR CODE. LEFT SIDED WEAKNESS. LEFT ARM AND LEFT LEG DRIFT. [facility]. PLAN IS FOR PERMISSIVE HTN, PLAVIX & ASPIRIN ANTIPLATELET THERAPY. HER DAUGHTER REPORTS THAT SHE SEEMS MORE CONFUSED THAN NORMAL. PT/OT/ST ARE SCHEDULED. CARDIAC DIET. 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 1 ASSIST/PIVOT TO BSC. TELEMETRY: NSR @ 59 BPM. ON RA. IT IS REPORTED TO ME THAT AN MRI IS NOT POSSIBLE DUE TO STENT.
[2024-05-25 06:14] LABS: BASOPHILS ABSOLUTE AUTO 0.03 K/mm3 (0.00-0.23); BASOPHILS PERCENT AUTO 1 % (0-2); EOSINOPHILS ABSOLUTE AUTO 0.11 K/mm3 (0.00-0.68); EOSINOPHILS PERCENT AUTO 2 % (0-6); Hematocrit 39.2 % (33.0-51.0); Hemoglobin 13.1 g/dL (11.5-16.0); IMMATURE GRAN ABSOLUTE AUTO 0.02 K/mm3 (0.00-0.10); IMMATURE GRAN PERCENT AUTO 0 % (0-1); LYMPHOCYTES ABSOLUTE AUTO 1.16 K/mm3 (0.84-5.20); LYMPHOCYTES PERCENT AUTO 19 % (21-46); MONOCYTES ABSOLUTE AUTO 0.42 K/mm3 (0.16-1.47); MONOCYTES PERCENT AUTO 7 % (4-13); Mean Corpuscular HGB 30.5 pg (26.0-34.0); Mean Corpuscular HGB Conc 33.4 g/dL (31.5-36.5); Mean Corpuscular Volume 91 fL (80-100); Mean Platelet Volume 9.2 fL (9.1-12.4); NEUTROPHILS ABSOLUTE AUTO 4.28 K/mm3 (1.96-9.15); NEUTROPHILS PERCENT AUTO 71 % (41-73); Platelet Count 189 K/mm3 (150-400); RDW Standard Deviation 46.9 fL (35.1-46.3); White Blood Cell Count 6.02 K/mm3 (4.00-11.30)
[2024-05-25 06:34] LABS: Bun/Creatinine Ratio 28.8 (12.0-20.0); Creatinine, Blood 0.97 mg/dL (0.40-1.00); Potassium, Blood 3.9 mmol/L (3.5-5.5)
[2024-05-25 07:17] VITALS: BP 156/90
[2024-05-25] MEDS ORDERED: Clopidogrel Bisulfate 75 MG Tab PO SCH (09:00)
[2024-05-25] MEDS ORDERED: FLUoxetine HCl 10 MG Cap PO SCH (09:00)
[2024-05-25] MEDS ORDERED: Donepezil HCl 5 MG Tab PO SCH (09:00)
[2024-05-25] MEDS ORDERED: Enoxaparin 30 MG/0.3 ML SYR SC SCH (09:00)
[2024-05-25] MEDS ORDERED: Torsemide 10 MG TAB PO SCH (09:00)
[2024-05-25] MEDS ORDERED: Aspirin 81 MG TabEC PO SCH (09:00)
[2024-05-25] MEDS ORDERED: Ondansetron HCl 2 MG / ML 2ML Vial IV PRN (11:35)
[2024-05-25 12:02] LABS: Cholesterol 169 mg/dL (50-200); HDL Cholesterol 56 mg/dL (>39); LDL/HDL RATIO 1.6; Low Density Lipoprotein Chol 87 mg/dL (0-110); Triglycerides 129 mg/dL (30-160); Very Low Density Lipoprot Chol 25 mg/dL (6-32)
[2024-05-25 14:45] VITALS: BP 135/93
--- NOTE | 2024-05-25 16:14 | NUR ---
SHIFT SUMMARY: PT AOX2, FULL ASSIST TO RESTROOM, CAN FEED HERSELF. HAD MULTIPLE LOOSE STOOL AND SOILED SELF, CHANGED AND CLEANED EACH TIME. PT COMPLAINS OF NAUSEA AND VOMITTED A FEW TIMES. NOTIFIED AND ZOFRAN GIVEN PER EMR. PT STATES STOMACH FEELS BETTER. STILL VERY WEAK ON HER FEET. COMMERCIAL LENDER ARE ABOUT EQUAL BILATERALLY. SPEECH THERAPY AND PT EVALS IN. UPDATES GIVEN TO [facility]. PT RESTING IN BED, BED IN LOWEST POSITION, CALL LIGHT IN REACH. CONTINUING CARE.
--- NOTE | 2024-05-25 16:45 | NUR ---
THIS DYE RANGE FEEDER HAS REVIEWED AND AGREES WITH ALL NOTES AND ASSESSMENTS BY SUSI HILLMAN.
[2024-05-25 19:07] VITALS: BP 141/82
[2024-05-26 04:07] VITALS: BP 146/80
--- NOTE | 2024-05-26 06:35 | NUR ---
SHIFT SUMMARY PT HAS RESTED T/O THE NIGHT, DENIES NEEDS DURING NURSE ROUNDS. NO N/V, AND NO COMPLAINTS OF PAIN. PT HAS BEEN CONTINENT/INCONTINENT OF URINE. VITALS ARE STABLE. PLAN OF CARE REMAINS UNCHANGED. BED IN LOW POSITION, BED ALARM ON, CALL LIGHT WITHIN REACH. PLAN OF CARE REMAINS UNCHANGED.
[2024-05-26 06:57] LABS: BASOPHILS ABSOLUTE AUTO 0.02 K/mm3 (0.00-0.23); BASOPHILS PERCENT AUTO 0 % (0-2); EOSINOPHILS ABSOLUTE AUTO 0.12 K/mm3 (0.00-0.68); EOSINOPHILS PERCENT AUTO 2 % (0-6); Hemoglobin 12.7 g/dL (11.5-16.0); IMMATURE GRAN ABSOLUTE AUTO 0.02 K/mm3 (0.00-0.10); IMMATURE GRAN PERCENT AUTO 0 % (0-1); LYMPHOCYTES PERCENT AUTO 25 % (21-46); MONOCYTES ABSOLUTE AUTO 0.65 K/mm3 (0.16-1.47); MONOCYTES PERCENT AUTO 12 % (4-13); Mean Corpuscular HGB 30.3 pg (26.0-34.0); Mean Corpuscular HGB Conc 32.6 g/dL (31.5-36.5); Mean Corpuscular Volume 93 fL (80-100); Mean Platelet Volume 9.4 fL (9.1-12.4); NEUTROPHILS ABSOLUTE AUTO 3.32 K/mm3 (1.96-9.15); NEUTROPHILS PERCENT AUTO 60 % (41-73); Platelet Count 189 K/mm3 (150-400); RDW Coefficient Variation 13.9 % (11.7-14.2); Red Blood Cell Count 4.19 M/mm3 (3.80-5.20); White Blood Cell Count 5.53 K/mm3 (4.00-11.30)
[2024-05-26 07:12] VITALS: BP 145/80
[2024-05-26 07:17] LABS: Bun/Creatinine Ratio 29.1 (12.0-20.0); Calcium, Blood 9.2 mg/dL (8.5-10.1); Creatinine, Blood 1.03 mg/dL (0.40-1.00); Potassium, Blood 3.4 mmol/L (3.5-5.5)
[2024-05-26] MEDS ORDERED: Potassium Chloride 20 MEQ TabCR PO ONE ×2 (08:00→10:35)
[2024-05-26 15:07] VITALS: BP 158/88
--- NOTE | 2024-05-26 16:16 | NUR ---
SHIFT SUMMARY: PT AOX2, WAXING AND WANING MENTATION. CONTINING/ INCONTINENT, KNOWING SHE NEEDS TO GO AND NOT BEING ABLE TO HOLD IT. ATTENDS IN PLACE AND CLEANED UP ACCORDINGLY. STILL 2PA TO BSC. STRENGHT AND FUNCTION IN LEFT ARM SEEMS TO BE IMPROVING BUT LEGS ARE STILL WEAK BILATTERALLY. PT ABLE TO EXPRESS HER NEEDS AND WANTS. TOLERATED MEDS IN APPLESAUCE WELL WITHOUT ASPIRATION. BED IN LOWEST POSTION, CALL LIGHT IN REACH. CONTINUING CARE.
[2024-05-26] MEDS ORDERED: Carvedilol 6.25 MG Tab PO SCH (17:00)
--- NOTE | 2024-05-26 18:20 | NUR ---
THIS CLAIM EXAMINER HAS REVIEWED AND AGREES WITH NOTES AND ASSESSMENTS BY SUSI HILLMAN.
[2024-05-26 19:13] VITALS: BP 89/53
[2024-05-27 04:13] VITALS: BP 135/77
[2024-05-27 06:03] LABS: BASOPHILS ABSOLUTE AUTO 0.01 K/mm3 (0.00-0.23); BASOPHILS PERCENT AUTO 0 % (0-2); EOSINOPHILS ABSOLUTE AUTO 0.13 K/mm3 (0.00-0.68); EOSINOPHILS PERCENT AUTO 2 % (0-6); Hematocrit 37.6 % (33.0-51.0); Hemoglobin 12.3 g/dL (11.5-16.0); IMMATURE GRAN ABSOLUTE AUTO 0.02 K/mm3 (0.00-0.10); IMMATURE GRAN PERCENT AUTO 0 % (0-1); LYMPHOCYTES ABSOLUTE AUTO 1.61 K/mm3 (0.84-5.20); LYMPHOCYTES PERCENT AUTO 28 % (21-46); MONOCYTES ABSOLUTE AUTO 0.55 K/mm3 (0.16-1.47); MONOCYTES PERCENT AUTO 10 % (4-13); Mean Corpuscular HGB Conc 32.7 g/dL (31.5-36.5); Mean Corpuscular Volume 92 fL (80-100); Mean Platelet Volume 9.2 fL (9.1-12.4); NEUTROPHILS ABSOLUTE AUTO 3.34 K/mm3 (1.96-9.15); NEUTROPHILS PERCENT AUTO 59 % (41-73); Platelet Count 194 K/mm3 (150-400); RDW Coefficient Variation 13.8 % (11.7-14.2); RDW Standard Deviation 46.9 fL (35.1-46.3); White Blood Cell Count 5.66 K/mm3 (4.00-11.30)
[2024-05-27 06:27] LABS: Bun/Creatinine Ratio 22.8 (12.0-20.0); Creatinine, Blood 1.23 mg/dL (0.40-1.00)
--- NOTE | 2024-05-27 06:37 | NUR ---
Rn summary: Patient is alert to self. She thought we were in her home and kept asking us to be sure and lock the door. Patient has not tried to get out of bed. Bed alarm is on. Pt is incontinent of bowel and bladder. She has left sided weakness. She was able to drink fluids well. Call light in reach but has not used it. Pt has slept. Repositioned for comfort and to prevent skin breakdown.
[2024-05-27 07:27] VITALS: BP 134/73
[2024-05-27] MEDS ORDERED: Losartan Potassium 50 MG Tab PO SCH (09:00)
[2024-05-27 16:12] VITALS: BP 135/87
--- NOTE | 2024-05-27 17:07 | NUR ---
SHIFT SUMMARY: AOX2 FORGETFUL AT TIME. CAN MAKE NEEDS KNOWN, NOT IMPUSLIVE. PT HAS BEEN SITTING AND STANDING WELL HAS BEEN SEEN BY PT AND OT AND DID WELL DURING EVALS. CAR UNLOADER FROM [facility] COMING TO EVAL TO FIND OUT PLACEMENT WITH NEW NEEDS. SEEMS TO BE GAINING SOME MORE COORDINATION AND STRENGTH. HAD ONE BOUT OF NAUSEA MEDICATED PER EMR. DAUGHTER ANXIOUS ABOUT FINDING PLACEMENT. PT RESTING IN BED, BED IN LOWEST POSITION, AND CALL LIGHT IN REACH. CONTINUING CARE.
--- NOTE | 2024-05-27 17:27 | NUR ---
THIS UPPER STITCHER HAS REVIEWED AND AGREES WITH ALL NOTES AND ASSESSMENTS BY SUSI HILLMAN.
[2024-05-27 19:36] VITALS: BP 125/72
[2024-05-28 02:24] VITALS: BP 142/85
--- NOTE | 2024-05-28 04:35 | NUR ---
SUMMARY: PT A/OX2-3 AND IS FORGETFUL AT TIMES BUT ABLE TO SPECIFY NEEDS WHEN STAFF IN ROOM. SHE'S PLEASANT AND COOPERATIVE W/CARE, REPOSITIONS SELF IN BED AND IS UP W/1PA TO BSC. PT CONTINENT/INCONTINENT W/ATTENDS CHANGED PRN. SHE USES CALL LIGHT OFF/ON BUT HAS BED ALARM ON FOR FALL RISK AND POSSIBLE IMPULSIVITY. L.SIDE WEAKNESS PERSISTS BUT STRENGTH IS IMPROVING. SHE'S NSR AT 60'S-70'S BPM ON TELE. NO ACUTE CHANGES, VSS/AFEBRILE. PLAN FOR [facility] UPON D/C. EL AND REPORT TO DAY RN.
[2024-05-28 06:01] LABS: BASOPHILS ABSOLUTE AUTO 0.02 K/mm3 (0.00-0.23); BASOPHILS PERCENT AUTO 0 % (0-2); EOSINOPHILS ABSOLUTE AUTO 0.19 K/mm3 (0.00-0.68); EOSINOPHILS PERCENT AUTO 4 % (0-6); Hematocrit 36.7 % (33.0-51.0); Hemoglobin 12.4 g/dL (11.5-16.0); IMMATURE GRAN ABSOLUTE AUTO 0.01 K/mm3 (0.00-0.10); IMMATURE GRAN PERCENT AUTO 0 % (0-1); LYMPHOCYTES ABSOLUTE AUTO 1.74 K/mm3 (0.84-5.20); LYMPHOCYTES PERCENT AUTO 32 % (21-46); MONOCYTES ABSOLUTE AUTO 0.47 K/mm3 (0.16-1.47); MONOCYTES PERCENT AUTO 9 % (4-13); Mean Corpuscular HGB 30.8 pg (26.0-34.0); Mean Corpuscular HGB Conc 33.8 g/dL (31.5-36.5); Mean Corpuscular Volume 91 fL (80-100); Mean Platelet Volume 9.2 fL (9.1-12.4); NEUTROPHILS ABSOLUTE AUTO 2.97 K/mm3 (1.96-9.15); NEUTROPHILS PERCENT AUTO 55 % (41-73); Platelet Count 193 K/mm3 (150-400); RDW Coefficient Variation 13.6 % (11.7-14.2); RDW Standard Deviation 45.8 fL (35.1-46.3); Red Blood Cell Count 4.03 M/mm3 (3.80-5.20)
[2024-05-28 06:34] LABS: Bun/Creatinine Ratio 24.8 (12.0-20.0); Calcium, Blood 8.8 mg/dL (8.5-10.1); Creatinine, Blood 1.09 mg/dL (0.40-1.00); Potassium, Blood 3.9 mmol/L (3.5-5.5)
[2024-05-28 07:45] VITALS: BP 141/82
[2024-05-28] MEDS ORDERED: Spironolactone 12.5 MG TAB PO SCH (09:00)
--- NOTE | 2024-05-28 13:36 | NUR ---
Upon receiving a referral for spiritual care, I visited the patient. The patient is lying in bed and alert. Her dtr, Maricarmen, is bedside. The patient explains that she is feels nauseous, so I cut my visit short. Before I go I learn of the patient dwells at [facility] in [place] and that she has lived most of her life in [place], [place] and [place], [place]. but came to [place] to live with her daughter. She was recently placed in [facility]. THey express their Roman Catholic beliefs, I provide prayer and then allow the patient peace and quiet. I will continue to remain available to patient and family.
[2024-05-28 14:51] VITALS: BP 152/95
[2024-05-28 17:16] VITALS: BP 121/78
--- NOTE | 2024-05-28 17:34 | NUR ---
SHIFT SUMMARY PT A&O TO SELF, VSS, AMB TO THE BSC W/ 2P ASSIST, VOIDING, DENIED PAIN, AND TOLERATED LITTLE PO INTAKE. PT C/O NAUSEA X2 THAT WAS MEDICATED PER THE EMAR. PT REFUSED TO WORK W/ PHYSICAL AND OCCUPATIONAL THERAPY. NO OTHER ACUTE CHANGES. CALL LIGHT WITHIN REACH AND BED ALARM ON FOR SAFETY.
[2024-05-28 22:49] VITALS: BP 92/62
[2024-05-29 04:35] VITALS: BP 106/68
--- NOTE | 2024-05-29 05:04 | NUR ---
SUMMARY: PT A/OX2 BUT IS FORGETUL TO PLACE AND SITUATION W/REMINDERS PROVIDED PRN. BED ALARM ON IS ON FOR IMULSIVITY/FALL RISK AND SHE'S UP W/2PA OOB. NEURO OBS STABLE AND R.SIDE WEAKNESS IS MILD/IMPROVING BUT UNSTEADY GAIT PERSISTS D/T IMPAIRED COORDINATION OF L.LEG. PT IS CONT/INCONTINENT W/BSC USE AND ATTENDS CHANGED PRN. SHE C/O INTERMITTENTLY FEELING "QUEASY" W/ZOFRAN RECEIVED PRN FOR TOLERABLE RELIEF. SHE'S NSR AT 60'S BPM ON TELE. VSS/AFEBRILE. NO ACUTE CHANGES. WCTM AND REPORT TO DAY RN.
--- NOTE | 2024-05-29 06:22 | NUR ---
SUMMARY: PT A/OX4 AND IS SOLOMON BUT SPECIFIES NEEDS AND IS PLEASANT AND COOPERATIVE W/CARE. HE'S UP W/1PA AND FWW IN ROOM AND USES URINAL AT EOB AD MARRY. STRENGTH IS TO R.SIDE BUT HE CONT'S TO HAVE DECREASED ROM TO R.SHOULDER AND HIP. HE'S BEEN AFIB AT 50'S-90'S BPM BUT HIT 40 BPM ONCE TONIGHT FOR A COUPLE SECONDS BEFORE RETURNING TO 6O'S BPM. PT DENIED CP/PRESSURE AND NEURO OBS STABLE. VSS/AFEBRILE, NO ACUTE CHANGES. WCTM AND REPORT TO DAY RN.
[2024-05-29 07:40] VITALS: BP 125/80
[2024-05-29 10:25] VITALS: BP 103/65
--- NOTE | 2024-05-29 14:14 | NUR ---
Patient tells me that she is feeling better and will most likely D/C today to [facility]. I provide a prayer and blessing for her departure and offer prayers of gratitude for her recovery.
[2024-05-29 15:10] VITALS: BP 112/71
[2024-05-29 17:39] VITALS: BP 115/76
[2024-05-29 19:04] VITALS: BP 101/64
--- NOTE | 2024-05-29 19:37 | NUR ---
SHIFT SUMMARY- PT ALERT AND ORIENTED TO SELF AND FAMILY. AT THETIME OF SHIFT CHANGE SHE BELIEVED SHE WAS AT THE REHAB FACILITY. PT IS A 1PA WITH TRANSFERS, SHE IS WEAK. SHE HAD C/O NAUSEA LAST NIGHT. DAUGHTER PRESENT AT THE TIME MEDS WERE GIVEN AND SHE STATED THEY HAD REDUCED THE PT DONEPEZIL DOSE TO 5MG AT HOME, BECAUSE IT WAS CAUSING GI UPSET. THEY DECLINED TO TAKE THE FULL DOSE. MEDICATED WITH 5MG, DR NOTIFIED ORDER CHANGED. PT HAS A SBP OF 103 AT THE TIME AM MEDS WERE DONE, GAVE CAEVEDILOL AND HELD ALL OTHER BP MEDS FOR CJ. SPOKE TO DR CASPER HE IS AWARE. PT IN BED, STILL VERY WEAK ON ROOM AIR NO S&S OF DISTRESS NOTED AT THE TIME OF BEDSIDE REPORT.
--- NOTE | 2024-05-29 23:07 | NUR ---
211 PT LYING IN BED, DENIES ANY DISCOMFORT AT THIS TIME. TELE NSR WITH 1ST DEGREE AV BLOCK AT 64. REDNESS ON OUTSIDE OF R ANKLE BONE, HEEL/FOOT PROTECTOR IN PLACE. SCABS ON UE'S. BED ALARM ON. NO OTHER APPARENT SIGNS OF DISTRESS. CALL LIGHT IS IN REACH.
--- NOTE | 2024-05-29 23:38 | NUR ---
PT LYING IN BED, EYES CLOSED, APPEARS TO BE RESTING. WAKES EASILY TO VERBAL STIMULI. NO APPARENT SIGNS OF DISTRESS. CALL LIGHT IS IN REACH. BED ALARM IS ON.
--- NOTE | 2024-05-30 01:41 | NUR ---
PT LYING IN BED, EYES CLOSED, APPEARS TO BE RESTING. BREATHING IS EVEN, UNLABORED. NO APPARENT SIGNS OF DISTRESS. CALL LIGHT IS IN REACH. BED ALARM IS ON.
[2024-05-30 02:41] VITALS: BP 121/69
--- NOTE | 2024-05-30 05:54 | NUR ---
PT IS AAO X 2-3, ON RA. SCABS ON UE'S, R GREAT TOENAIL IS BROKEN, R SPOT ON OUTSIDE OF R ANKLE, HEEL PROTECTOR IN PLACE. TELE NSR. PT DENIED ANY DISCOMFORT FOR THIS SHIFT.
--- NOTE | 2024-05-30 05:55 | NUR ---
PT LYING IN BED, EYES CLOSED, APPEARS TO BE RESTING. BREATHING IS EVEN, UNLABORED. NO APPARENT SIGNS OF DISTRESS. CALL LIGHT IS IN REACH. BED ALARM IS ON. NO OTHER CHANGES THIS SHIFT.
[2024-05-30 08:55] VITALS: BP 137/77
[2024-05-30] MEDS ORDERED: Donepezil HCl 5 MG Tab PO SCH (09:00)
[2024-05-30 10:53] LABS: BASOPHILS ABSOLUTE AUTO 0.02 K/mm3 (0.00-0.23); BASOPHILS PERCENT AUTO 0 % (0-2); EOSINOPHILS ABSOLUTE AUTO 0.18 K/mm3 (0.00-0.68); EOSINOPHILS PERCENT AUTO 4 % (0-6); Hematocrit 40.3 % (33.0-51.0); Hemoglobin 13.6 g/dL (11.5-16.0); IMMATURE GRAN ABSOLUTE AUTO 0.02 K/mm3 (0.00-0.10); IMMATURE GRAN PERCENT AUTO 0 % (0-1); LYMPHOCYTES ABSOLUTE AUTO 1.67 K/mm3 (0.84-5.20); LYMPHOCYTES PERCENT AUTO 34 % (21-46); MONOCYTES ABSOLUTE AUTO 0.24 K/mm3 (0.16-1.47); MONOCYTES PERCENT AUTO 5 % (4-13); Mean Corpuscular HGB 30.8 pg (26.0-34.0); Mean Corpuscular HGB Conc 33.7 g/dL (31.5-36.5); Mean Corpuscular Volume 91 fL (80-100); Mean Platelet Volume 9.6 fL (9.1-12.4); NEUTROPHILS ABSOLUTE AUTO 2.76 K/mm3 (1.96-9.15); NEUTROPHILS PERCENT AUTO 56 % (41-73); Platelet Count 251 K/mm3 (150-400); RDW Coefficient Variation 13.4 % (11.7-14.2); RDW Standard Deviation 45.8 fL (35.1-46.3); Red Blood Cell Count 4.41 M/mm3 (3.80-5.20); White Blood Cell Count 4.89 K/mm3 (4.00-11.30)
[2024-05-30 11:05] LABS: Bun/Creatinine Ratio 29.5 (12.0-20.0); Calcium, Blood 9.9 mg/dL (8.5-10.1); Creatinine, Blood 1.22 mg/dL (0.40-1.00); Potassium, Blood 4.1 mmol/L (3.5-5.5)
[2024-05-30] MEDS ORDERED: PANT40 PO (12:08)
[2024-05-30] MEDS ORDERED: CLOP75 PO (12:08)
[2024-05-30 12:47] LABS: Influenza A, PCR NEGATIVE (NEGATIVE); Influenza B, PCR NEGATIVE (NEGATIVE); Resp Syncytial Virus, PCR NEGATIVE (NEGATIVE); SARS-Cov-2 (COVID-19) PCR, MMC NEGATIVE (NEGATIVE)
[2024-05-30 12:58] VITALS: BP 107/73
--- NOTE | 2024-05-30 13:06 | NUR ---
CALLED DR OSPINA- PT SBP WAS 137 THIS AM AND CARVEDILOL AND DEMADEX WERE GIVEN. VITAL SRECHECK SHOWS SBP 107. CALLED DR OSPINA THE PT DID NOT RECIEVE SPIRONOLACTONE OR LOSARTAN YESTERDAY OR TODAY. SHE IS AWARE. PT C/O NAUSEA AT THIS TIME, ONLY IV MEDS AVAILABLE, RECIEVED PO DOSE 4MG ZOFRAN X1.
[2024-05-30] MEDS ORDERED: Ondansetron 4 MG SoluTab SL ONE (13:10)
--- NOTE | 2024-05-30 15:45 | NUR ---
DISCHARGE NOTE- PT DISCHARGED TO [facility]. PT CLEANED AND CHANGED INTO HOME CLOTHES PRIOR TO DISCHARGE. TELE AND IV DC'D PRIOR TO DISCHARGE. REPORT COMPLETED WITH DARIN RN. PT TAKEN VIA WC TRANSPORT, NO S&S OF DISTRESS NOTED AT THE TIME OF DISCHARGE.
== END 2024-05-30 15:07 | DRG 65 ==
LOC: ER 11:07 → MEDS 11:08
PROVIDERS: Family Medicine; Student in an Organized Health Care Education/Training Program; ADMIT Internal Medicine
DX: I63.9 Cerebral infarction, unspecified (principal); G81.94 Hemiplegia, unspecified affecting left nondominant side; I50.22 Chronic systolic (congestive) heart failure; Z66 Do not resuscitate; R29.706 NIHSS score 6; G30.9 Alzheimer's disease, unspecified; F02.80 Dementia in other diseases classified elsewhere, unspecified severity, without behavioral disturbance, psychotic disturbance, mood disturbance, and anxiety; R29.810 Facial weakness; I11.0 Hypertensive heart disease with heart failure; I66.01 Occlusion and stenosis of right middle cerebral artery; I66.21 Occlusion and stenosis of right posterior cerebral artery; F32.A Depression, unspecified; I25.10 Atherosclerotic heart disease of native coronary artery without angina pectoris; F41.9 Anxiety disorder, unspecified; I35.0 Nonrheumatic aortic (valve) stenosis; Z79.82 Long term (current) use of aspirin; Z79.899 Other long term (current) drug therapy; E86.0 Dehydration
CPT/HCPCS: 0241U; 36415; 70450; 70496; 70498; 71045; 80048; 80053; 80061; 82947; 83036; 83735; 84100; 84484; 85025; 85610; 85730; 92610; 93005; 93010; 96372; 96374; 97110; 97161; 97166; 97530; 97535; 99285-25; A9270; C8929; G0378; J1650; J2405; Q9957; Q9967

== ENCOUNTER 2024-07-12 12:27 | Observation (INO) | payer MEDICARE, BC ==
[~2024-07-12] VITALS: Ht 160 cm; Wt 52.0 kg
[~2024-07-12 12:27] MED LIST changes: +Aspir 8181 MG PO; +CLOP75 PO; +PANT40 PO
[2024-07-12 13:48] LABS: BASOPHILS ABSOLUTE AUTO 0.03 K/mm3 (0.00-0.23); BASOPHILS PERCENT AUTO 0 % (0-2); EOSINOPHILS ABSOLUTE AUTO 0.09 K/mm3 (0.00-0.68); EOSINOPHILS PERCENT AUTO 1 % (0-6); Hematocrit 34.4 % (33.0-51.0); Hemoglobin 11.3 g/dL (11.5-16.0); IMMATURE GRAN ABSOLUTE AUTO 0.04 K/mm3 (0.00-0.10); IMMATURE GRAN PERCENT AUTO 0 % (0-1); LYMPHOCYTES ABSOLUTE AUTO 2.31 K/mm3 (0.84-5.20); LYMPHOCYTES PERCENT AUTO 21 % (21-46); MONOCYTES ABSOLUTE AUTO 0.87 K/mm3 (0.16-1.47); MONOCYTES PERCENT AUTO 8 % (4-13); Mean Corpuscular HGB 30.4 pg (26.0-34.0); Mean Corpuscular HGB Conc 32.8 g/dL (31.5-36.5); Mean Corpuscular Volume 93 fL (80-100); Mean Platelet Volume 9.3 fL (9.1-12.4); NEUTROPHILS ABSOLUTE AUTO 7.74 K/mm3 (1.96-9.15); NEUTROPHILS PERCENT AUTO 70 % (41-73); Platelet Count 182 K/mm3 (150-400); RDW Coefficient Variation 14.1 % (11.7-14.2); RDW Standard Deviation 47.9 fL (35.1-46.3); Red Blood Cell Count 3.72 M/mm3 (3.80-5.20); White Blood Cell Count 11.08 K/mm3 (4.00-11.30)
[2024-07-12 14:03] LABS: Bun/Creatinine Ratio 29.5 (12.0-20.0); Calcium, Blood 9.8 mg/dL (8.5-10.1); Creatinine, Blood 1.32 mg/dL (0.40-1.00); Magnesium, Blood 2.3 mg/dL (1.6-2.4); Potassium, Blood 4.6 mmol/L (3.5-5.5)
[2024-07-12] MEDS ORDERED: TraZODone HCl 50 MG Tab PO PRN (16:15)
[2024-07-12] MEDS ORDERED: Ondansetron HCl 2 MG / ML 2ML Vial IV PRN (16:15)
[2024-07-12] MEDS ORDERED: FLU VACC TS2024-25(6MOS UP)/PF 45 MCG/0.5 ML SYRINGE IM SCH (16:20)
[2024-07-12] MEDS ORDERED: Bisacodyl 10 MG Supp PR PRN (16:20)
[2024-07-12 18:02] VITALS: BP 158/68
[2024-07-12 20:51] VITALS: BP 119/70
[2024-07-12] MEDS ORDERED: Docusate Sodium 100 MG Cap PO SCH (21:00)
[2024-07-12] MEDS ORDERED: Famotidine 10 MG/ML 2ML Vial IV SCH (21:00)
[2024-07-13 02:17] VITALS: BP 114/72
--- NOTE | 2024-07-13 05:07 | NUR ---
SHIFT SUMMARY PT A&O, BUT FORGETFUL. BOTH CONT AND INCONT OF URINE. NEURO INTACT WITH PRE-EXISTING WEAKNESS. PT DOES C/O LIGHTHEADEDNESS WHEN SHE MOVES FROM LYING TO SITTING. NO SYNCOPE. BED IN LOWEST POSITION, CALL LIGHT WITHIN REACH. BED ALARM ON.
[2024-07-13 07:17] LABS: BASOPHILS ABSOLUTE AUTO 0.01 K/mm3 (0.00-0.23); BASOPHILS PERCENT AUTO 0 % (0-2); EOSINOPHILS ABSOLUTE AUTO 0.13 K/mm3 (0.00-0.68); EOSINOPHILS PERCENT AUTO 2 % (0-6); Hematocrit 30.6 % (33.0-51.0); Hemoglobin 10.5 g/dL (11.5-16.0); IMMATURE GRAN ABSOLUTE AUTO 0.03 K/mm3 (0.00-0.10); IMMATURE GRAN PERCENT AUTO 1 % (0-1); LYMPHOCYTES ABSOLUTE AUTO 1.64 K/mm3 (0.84-5.20); LYMPHOCYTES PERCENT AUTO 26 % (21-46); MONOCYTES ABSOLUTE AUTO 0.53 K/mm3 (0.16-1.47); MONOCYTES PERCENT AUTO 9 % (4-13); Mean Corpuscular HGB 30.9 pg (26.0-34.0); Mean Corpuscular HGB Conc 34.3 g/dL (31.5-36.5); Mean Corpuscular Volume 90 fL (80-100); Mean Platelet Volume 9.7 fL (9.1-12.4); NEUTROPHILS PERCENT AUTO 62 % (41-73); Platelet Count 188 K/mm3 (150-400); RDW Coefficient Variation 14.1 % (11.7-14.2); RDW Standard Deviation 46.4 fL (35.1-46.3); White Blood Cell Count 6.24 K/mm3 (4.00-11.30)
[2024-07-13 07:33] LABS: Albumin, Blood 2.8 g/dL (3.4-5.0); Albumin/Globulin Ratio 0.7 (0.8-1.8); Bilirubin, Total 0.4 mg/dL (0.1-1.0); Bun/Creatinine Ratio 29.1 (12.0-20.0); Calcium, Blood 9.2 mg/dL (8.5-10.1); Creatinine, Blood 1.34 mg/dL (0.40-1.00); Potassium, Blood 4.1 mmol/L (3.5-5.5); Total Protein, Blood 6.8 g/dL (6.4-8.2)
[2024-07-13 07:39] VITALS: BP 145/83
[2024-07-13] MEDS ORDERED: FLUoxetine HCl 10 MG Cap PO SCH (09:00)
[2024-07-13] MEDS ORDERED: Aspirin 81 MG TabEC PO SCH (09:00)
[2024-07-13] MEDS ORDERED: Enoxaparin 30 MG/0.3 ML SYR SC SCH (09:00)
[2024-07-13] MEDS ORDERED: Losartan Potassium 50 MG Tab PO SCH (09:00)
== END 2024-07-13 15:44 | disposition home or self-care (01) ==
LOC: ER 12:27 → MEDS 12:28
PROVIDERS: Emergency Medicine; ADMIT Family Medicine
DX: I50.23 Acute on chronic systolic (congestive) heart failure (principal); R55 Syncope and collapse; I25.10 Atherosclerotic heart disease of native coronary artery without angina pectoris; F32.A Depression, unspecified; K21.9 Gastro-esophageal reflux disease without esophagitis; G30.9 Alzheimer's disease, unspecified; F02.80 Dementia in other diseases classified elsewhere, unspecified severity, without behavioral disturbance, psychotic disturbance, mood disturbance, and anxiety; I25.2 Old myocardial infarction; Z79.82 Long term (current) use of aspirin; Z79.899 Other long term (current) drug therapy; Z95.1 Presence of aortocoronary bypass graft
CPT/HCPCS: 36415; 71045; 80048; 80053; 83735; 83880; 84484; 85025; 93005; 93010; 93308; 93321; 94760; 96372; 96374; 96376; 97110; 97161; 99285-25; A9270; G0378; J1650

== ENCOUNTER 2024-09-15 11:27 | Emergency (ER) | payer OTHER, MEDICARE, BC ==
[~2024-09-15] VITALS: Ht 162.6 cm; Wt 70.3 kg
[2024-09-15] MEDS ORDERED: Acetaminophen 500 MG Tab PO ONE (12:50)
[2024-09-15] MEDS ORDERED: Diphth,Pertuss(Acell),Tet Vac 0.5 ML VIAL IM ONE (13:50)
[2024-09-15 14:00] VITALS: BP 156/88
== END 2024-09-15 14:22 | disposition home or self-care (01) ==
LOC: ER 11:27
DX: S00.81XA Abrasion of other part of head, initial encounter (principal); K21.9 Gastro-esophageal reflux disease without esophagitis; F41.9 Anxiety disorder, unspecified; G30.9 Alzheimer's disease, unspecified; F02.80 Dementia in other diseases classified elsewhere, unspecified severity, without behavioral disturbance, psychotic disturbance, mood disturbance, and anxiety; Z23 Encounter for immunization; Z79.82 Long term (current) use of aspirin; Z79.899 Other long term (current) drug therapy; W01.0XXA Fall on same level from slipping, tripping and stumbling without subsequent striking against object, initial encounter
CPT/HCPCS: 70450; 90471; 90715; 93005; 93010; 99284-25; A9270

== ENCOUNTER → 2025-07-22 | Outpatient (CLI) | payer MEDICARE, BC ==
[2025-07-23 15:34] LABS: Bilirubin, Urine Neg (Neg); Glucose Qualitative, Urine Neg (Neg); Ketones, Urine Neg (Neg); Leukocyte Esterase, Urine 3+ (Neg); Protein, Urine 2+ (Neg); Specific Gravity, Urine 1.020 (1.003-1.022); Urobilinogen, Urine NORM (Normal)
[2025-07-23 15:41] LABS: Color, Urine Yellow (P-Yellow)
== END | disposition home or self-care (01) ==
LOC: LAB 18:00 → LAB SHORT 18:00
PROVIDERS: Family Medicine
DX: N39.0 Urinary tract infection, site not specified (principal)
CPT/HCPCS: 81001; 87077; 87086; 87186